=== PATIENT | female | born 1965 | race Caucasian/White ===

== ENCOUNTER 2022-01-20 11:43 | Emergency (ER) | payer OTHER ==
[~2022-01-20] VITALS: Ht 157.5 cm; Wt 76.2 kg
[~2022-01-20 11:43] MED LIST: HYDR1TAB8 OP; NITR-65 PO; OXYC1CAP3 PO; PHEN35TA PO; [UNRECOGNIZED DRUG - CODE] PO
--- NOTE | 2022-01-20 12:34 | ED EENT ---
History of Present Illness General Chief Complaint: Eye Problems Stated Complaint: R EYE PAIN Source: patient Exam Limitations: no limitations History of Present Illness Date Seen by Provider: January 20, 2022 Time Seen by Provider: 12:33 Initial Comments Foreign body sensation right eye since mowing the yard yesterday. She does wear contacts but there have been taken out. She follows with Dr. Cunningham Timing/Duration: abrupt Location: eye (R) Prearrival Treatment: no prearrival treatment Associated Symptoms: denies symptoms Allergies and Home Medications Allergies Coded Allergies: No Known Drug Allergies (Unverified , 10/20/12) Patient Home Medication List Home Medication List Reviewed: Yes Hydrocodone Bit/Ibuprofen (Vicoprofen 200-7.5 Mg Tab) 1 Each Tablet, 1-2 EACH OP Q 4 - 6 HRS PRN Prescribed by: CALE AREVALO on 01/25/11 1301 Nitrofurantoin/Nitrofuran Mac (Macrobid) 100 Mg Capsule, 1 EACH PO BID Prescribed by: CALE AREVALO on 01/25/11 1301 Oxycodone Hcl/Acetaminophen (Oxycodone-Apap 5-500 Mg Cap) 1 Each Capsule, 1 EACH PO Q 6 H PRN PAIN Prescribed by: KENROY GAUTAM on 01/29/11 1042 Phendimetrazine Tartrate (Phendimetrazine) 35 Mg Tablet, 35 MG PO DAILY, (Reported) Entered as Reported by: YUNIEL OROPEZA on 01/25/11928 Phendimetrazine Tartrate (Phendimetrazine Tartrate) 105 Mg Capsule.sa, 105 MG PO, (Reported) Entered as Reported by: YUNIEL OROPEZA on 01/25/11928 Review of Systems Review of Systems Constitutional: see HPI Eyes: See HPI, Foreign Body Sensation Ears: No Symptoms Reported Nose: no symptoms reported Mouth: no symptoms reported Throat: no symptoms reported Respiratory: no symptoms reported Cardiovascular: no symptoms reported Past Ezmwtrv-Pmgihr-Ypywha Hx Patient Social History Tobacco Use?: No Use of E-Cig and/or Vaping dev: No Substance use?: No Alcohol Use?: No Pt feels they are or have been: No Immunizations Up To Date Tetanus Booster (TDap): Less than 5yrs Past Medical History Reproductive Disorders: No Adverse Reaction/Blood Tranf: No Physical Exam Vital Signs Vital Signs - First Documented 01/20/22 12:28 Pulse 74 Resp 16 B/P (MAP) 147/77 (100) Pulse Ox 96 O2 Delivery Room Air Height, Weight, BMI Height: 5'2" Weight: 185lbs. oz. 83.431717qd; BMI Method:Stated General Appearance: WD/WN, no apparent distress Eyes: right eye other (On the palpebral conjunctive a upper eyelid is a small black speck. Foreign body sensation went away after application of topical tetracaine. Upon fluorescein staining there is no corneal abrasion seen. The small speck was removed with a sterile cotton swab in saline.); bilateral eye normal inspection, bilateral eye PERRL, bilateral eye EOMI Ears: bilateral ear auricle normal, bilateral ear canal normal, bilateral ear TM normal Neck: non-tender, full range of motion Cardiovascular: regular rate, rhythm, no murmur Respiratory: no respiratory distress, no accessory muscle use Gastrointestinal: normal bowel sounds, non tender Neurologic/Psychiatric: alert, normal mood/affect, oriented x 3 Skin: normal color, warm/dry Procedures/Interventions Suture Size: 5-0 Progress/Results/Core Measures Results/Orders My Orders Orders - MIRIAM KUNZ APRN Tetracaine 0.5% Ophth Linda Sdv (Tetracai (01/20/22 12:45) Fluorescein Strips ([id number]-Y-Gjjszw) (01/20/22 12:45) Balanced Salt Irrigation Soln (Bss Irrig (01/20/22 12:45) Vital Signs/I&O 01/20/22 12:28 Pulse 74 Resp 16 B/P (MAP) 147/77 (100) Pulse Ox 96 O2 Delivery Room Air Departure Communication (Admissions) Pupils are equal. Extraocular muscles intact. Complete relief of symptoms with the application of topical agent tetracaine. no corneal abrasion seen upon fluorescein staining Impression Primary Impression: Foreign body of right conjunctival sac Disposition: 01 HOME, SELF-CARE Condition: Stable Departure-Patient Inst. Decision time for Depature: 12:47 Referrals: KORIN YOO DO (PCP/Family) Primary Care Physician MILLIE CUNNINGHAM OD Patient Instructions: Foreign Body in Eye (DC) Add. Discharge Instructions: . Return to ER for any concerns. Call Dr. Dooley for any recurrent symptoms. Their office does have an after-hours phone number available. All discharge instructions reviewed with patient and/or family. Voiced understanding. MIRIAM KUNZ WOOL MIXER January 20, 2022 12:34
[2022-01-20] MEDS ORDERED: TETRACAINE 0.5% OPHTH SOLN 4 ML BTL (SINGLE DOSE ONLY) OU ONE (12:45)
[2022-01-20] MEDS ORDERED: FLUORESCEIN (FLUOR-I-STRIPS) 1 MG STRP OU ONE (12:45)
[2022-01-20] MEDS ORDERED: BSS 15 ML IR ONE (12:45)
[2022-01-20 12:52] VITALS: BP 147/77
== END 2022-01-20 12:52 | disposition home or self-care (01) ==
LOC: EDUNIT# 11:43 → ER 11:46
DX: T15.11XA Foreign body in conjunctival sac, right eye, initial encounter (principal)
CPT/HCPCS: 99281